=== PATIENT | female | born 1935 ===

== ENCOUNTER 2017-08-09 16:42 | Inpatient (IN) | payer MEDICARE ==
[~2017-08-09] VITALS: Ht 165.1 cm; Wt 52.2 kg
[2017-08-09 20:00] VITALS: BP 110/50
--- NOTE | 2017-08-09 20:00 | NUR ---
Admitted is a 81y/o F via [place] with [facility] from [facility] with a diagnosis of Right Humerus Fx (No Surgical Intervention needed) who tripped and fell down some stairs landing on her right shoulder and side at home. with Patient. Report received from Fernanda of [facility] regarding status of patient during transfer. Pt. with hx of GI bleeds, Malnutrition, Osteoporosis, Chronic Degenerative Disease, Liver Cirrhosis and Hypothyroid. Patient is alert and oriented x3. Verbally responsive and able to make needs known. Denies any pain and discomfort at this time. No acute distress. No SOB. On room air. Right arm sling and splint applied to right arm and hand and need to be kept on at al times per, nursing report. Bruising noted on Right arm, neck area, back, and right hand. Hematoma and bruising noted on right Forehead and Left hand. No s/s of bleeding at this time. Dr. Verdugo made aware of admission. Called [facility] exchange and spoke with Dr. America Harris who was made aware of New admission and med Reconciliation. Verbal order to continue all meds. New orders for Pain medication noted and carried out. All needs attended to promptly. Call light within reach. Will continue to monitor.
[2017-08-09] MEDS ORDERED: LEVO125T8 PO (20:12)
[2017-08-09] MEDS ORDERED: SPIR100T3 PO (20:12)
[2017-08-09] MEDS ORDERED: HYDR-552 PO (20:47)
[2017-08-09] MEDS ORDERED: PANT40TA2 PO (20:47)
[2017-08-09] MEDS: HYDROCODONE/APAP 5-325MG TABLET PO PRN (21:14)
[2017-08-10] MEDS ORDERED: HYDROCODONE/APAP 5-325MG TABLET PO PRN (06:45)
--- NOTE | 2017-08-10 06:45 | NUR ---
Patient awake and verbally responsive. Able to make needs known. Denies any pain and discomfort. No acute distress. No SOB. No c/o pain and discomfort at this time. Slept comfortably through out the night. Right sling and right splint on right arm and wrist. Kept clean and dry. All needs attended to promptly. Call light within reach. Will continue to monitor.
[2017-08-10] MEDS ORDERED: PANTOPRAZOLE SODIUM 40 MG TABLET.DR PO ONE (07:14)
[2017-08-10] MEDS ORDERED: PANTOPRAZOLE SODIUM 40 MG TABLET.DR PO SCH (07:30)
[2017-08-10] MEDS: SPIRONOLACTONE 100 MG TABLET PO SCH (09:48)
[2017-08-10] MEDS: LEVOTHYROXINE SODIUM 125 MCG TABLET PO SCH (09:48)
[2017-08-10] MEDS: HYDROCODONE/APAP 5-325MG TABLET PO PRN ×2 (09:58→15:13)
--- NOTE | 2017-08-10 11:59 | NUR ---
WOUND CARE CONSULT: PT SEEN FOR FOREHEAD HEMATOMA. SMALL RAISED AREA NOTED TO RT FOREHEAD WITH DRY ABRASION AND BRUISING. PRESENTS WITH IMMOBILIZER TO RT ARM. PT STATES HAS FRACTURE TO WRIST AREA. IMMOBILIZER NOT REMOVED AT THIS TIME. RECOMMEND SURGICAL CONSULT/FOLLOW UP. DRY SCAB NOTED TO LEFT THUMB. PT GETS UP TO BATHROOM WITH ASSISTANCE. WILL SEE PRN. PADILLA IN AGREEMENT WITH PLAN OF CARE. Addendum: 08/10/17 at 1205 by CHRISTO MUNOZ RN Amended: Links added.
[2017-08-10 12:00] VITALS: BP 127/75
--- NOTE | 2017-08-10 12:30 | NUR ---
DAILY NOTE WOUND NURSE IN TO SEE PT WROTE TX ORDERS FOR RIGHT HAND WOUND. OLD DRY DRSG REMOVED JEM WELL BY PT. PIC TAKEN. TOP RIGHT HAND AND ELBOW
--- NOTE | 2017-08-10 13:56 | NUR ---
WOUND CARE: RT ARM SKIN TEAR ASSESSED AND NOTED TO BE LARGE. RECOMMENDATIONS MADE FOR WOUND CARE. DISCUSSED WITH NURSING STAFF. WILL SEE PRN. PADILLA IN AGREEMENT WITH PLAN OF CARE. Addendum: 08/10/17 at 1357 by CHRISTO MUNOZ RN Amended: Links added.
[2017-08-10] MEDS ORDERED: Z GUARD REMEDY PASTE 57 GM TUBE TOP PRN (14:00)
--- NOTE | 2017-08-10 19:30 | NUR ---
Received pt in bed, awake alert and oriented. Up in bed watching TV. Denies any pain or discomfort at this time. Able to make needs known. Urinated x 1 in bedpan, clear and yellow with no abnormal odor noted. No acute distress noted. All safety measures and fall precautions maintained. Call light within reach. Will continue to monitor.
[2017-08-11] MEDS: LEVOTHYROXINE SODIUM 125 MCG TABLET PO SCH (06:20)
[2017-08-11] MEDS: PANTOPRAZOLE SODIUM 40 MG TABLET.DR PO SCH (06:20)
--- NOTE | 2017-08-11 06:48 | NUR ---
Pt slept well throughout the evening, waking up to request the bed main. Voided x 2. No BM. Alert and oriented, verbally responsive and able to make needs known. Denies pain or discomfort at this time. No acute distress noted. All safety measures and fall precautions maintained. Call light within reach. Bed locked, in lowest position and side rails up x 2.
[2017-08-11 08:03] LABS: ALANINE AMINOTRANSFERASE 18 U/L (14-59); ALKALINE PHOSPHATASE 51 U/L (50-136); ASPARTATE AMINOTRANSFERASE 19 U/L (15-37); BILIRUBIN,TOTAL 0.9 mg/dL (0.2-1.0); CARBON DIOXIDE 26 mmol/L (21-32); CHLORIDE 97 mmol/L (98-107); CREATININE 0.8 mg/dL (0.6-1.3); GLUCOSE 96 mg/dL (74-106); LIPASE 75 U/L (73-393); MAGNESIUM 1.4 mg/dL (1.8-2.4); PHOSPHOROUS 3.3 mg/dL (2.5-4.9); POTASSIUM 3.7 mmol/L (3.5-5.1); TOTAL PROTEIN, SERUM 6.5 g/dL (6.4-8.2); UREA NITROGEN, BLOOD 11 mg/dL (7-18)
[2017-08-11 08:05] LABS: BASOPHILS % (AUTO) 0.7 % (0.0-2.0); EOSINOPHILS # (AUTO) 0.1 K/uL (0.0-0.7); EOSINOPHILS % (AUTO) 2.3 % (0.0-7.0); HEMATOCRIT 30.4 % (37-47); HEMOGLOBIN 10.4 G/DL (12.0-16.0); LYMPHOCYTES # (AUTO) 0.7 K/UL (0.8-4.8); LYMPHOCYTES % (AUTO) 19.7 % (20.5-51.5); MEAN CORPUSCULAR HEMOGLOBIN 35.3 UUG (27.0-31.0); MEAN CORPUSCULAR HGB CONC 34 g/dL (32.0-37.0); MEAN CORPUSCULAR VOLUME 103.4 FL (81.0-99.0); MONOCYTES # (AUTO) 0.4 K/UL (0.1-1.30); MONOCYTES % (AUTO) 10.2 % (0.0-11.0); NEUTROPHILS # (AUTO) 2.4 K/UL (1.8-8.9); NEUTROPHILS % (AUTO) 67.1 % (38.5-71.5); PLATELET COUNT (AUTO) 118 K/UL (150-450); RED BLOOD CELL COUNT(AUTO) 2.94 MIL/UL (4.2-5.4); WHITE BLOOD COUNT (AUTO) 3.6 K/UL (4.0-11.2)
[2017-08-11] MEDS: SPIRONOLACTONE 100 MG TABLET PO SCH (08:41)
[2017-08-11] MEDS: HYDROCODONE/APAP 5-325MG TABLET PO PRN ×2 (10:11→18:30)
--- NOTE | 2017-08-11 11:11 | NUR ---
RECEIVED SBAR FROM CONSTRUCTION OR LEAK GANG LABORER NURSE, PATIENT NOTED SLEEPING IN BED, RIGHT ARM IN SLING, NO COMPLAINTS OF PAIN, NO SIGNS OF DISTRESS NOTED, CALL LIGHT IN REACH, BED LOCKED AND IN LOW POSITION
[2017-08-11] MEDS ORDERED: MAGNESIUM OXIDE 400 MG TABLET PO ONE (15:30)
--- NOTE | 2017-08-11 19:30 | NUR ---
PT ALERT AND ORIENTED IN BED. NO DISTRESS NOTED. PT PAIN "MUCH BETTER" SINCE TAKING THE [place]. FOREARM DRESSING CLEAN AND INTACT. SAFETY MAINTAINED. CALL LIGHT WITHIN REACH. WILL CONTINUE TO MONITOR.
[2017-08-11 20:00] VITALS: BP 138/67
[2017-08-12] MEDS: PANTOPRAZOLE SODIUM 40 MG TABLET.DR PO SCH (06:01)
[2017-08-12] MEDS: LEVOTHYROXINE SODIUM 125 MCG TABLET PO SCH (06:01)
--- NOTE | 2017-08-12 06:39 | NUR ---
PT ALERT AND ORIENTED IN BED. NO DISTRESS NOTED. ICE PACKS PROVIDED TO RIGHT UPPER ARM AND SHOULDER FOR COMFORT, ARM IMMOBILIZER IN PLACE. REFUSING PAIN MEDICATION AT THIS TIME. OFFERED PRUNE JUICE FOR CONSTIPATION, EXPLAINED SHE WILL TAKE IT WITH BREAKFAST, PASSING FLATULENCE. SAFETY MAINTAINED. CALL LIGHT WITHIN REACH.
--- NOTE | 2017-08-12 07:02 | NUR ---
Patient awake, lying on bed on a semi sarabia's position with no SOB, distress or any discomforts. All needs were attended and anticipated. call light placed within reach. Encouraged patient to use call light whenever assistance is needed. Will continue to monitor.
[2017-08-12 07:48] VITALS: BP 119/58
--- NOTE | 2017-08-12 08:15 | NUR ---
Patient awake, lying on bed on a semi- sarabia's position with pain 2 out of 10 on her right arm. cold compress applied on right arm. Will continue to monitor.
--- NOTE | 2017-08-12 09:20 | NUR ---
Wound care treatment done, no signs and symptoms of infection, tolerated well.
[2017-08-12] MEDS: SPIRONOLACTONE 100 MG TABLET PO SCH (09:40)
--- NOTE | 2017-08-12 11:13 | NUR ---
Patient awake, lying on bed on a semi sarabia's position with at bedside with no SOB, distress or any discomforts. All needs were attended and anticipated. Call light placed within reach. Encouraged patient to use call light whenever assistance is needed. Will continue to monitor.
--- NOTE | 2017-08-12 12:30 | NUR ---
Patient was awake, alert, lying on bed on a semi sarabia's position with no distress or discomforts. at bedside. Patient was seen and examined by Dr. Mikey Robison with new order of Naproxen 500 mg 1 tablet orally every 12 hours. Noted and carried out. patient notified and agreed.
--- NOTE | 2017-08-12 12:58 | NUR ---
Called Dr. Robison and notified that patient did not have any bowel movements but able to pass flatus and that the abdomen was assessed no bloating noted with normoactive bowel sounds, no abdominal pain or discomforts per patient. Received new orders from Dr. Robison to administer Dulcolax 10 mg 1 suppository rectally once today and Lactulose 20 grams orally every 6 hours as needed for constipation. Orders noted and carried out. Patient notified and agreed.
[2017-08-12] MEDS ORDERED: LACTULOSE 20 G/30 ML LIQUID UDC PO PRN (13:00)
[2017-08-12] MEDS ORDERED: BISACODYL 10 MG SUPP.RECT RC ONE (13:00)
[2017-08-12] MEDS: NAPROXEN 500 MG TABLET PO SCH ×2 (13:12→20:14)
--- NOTE | 2017-08-12 13:21 | NUR ---
Offered the patient her Dulcolax suppository 10 mg rectally once today as ordered by Dr. Robison but patient said she will have it a little later. Explained risks and benefits. But patient said a little later. Will continue to offer the suppository later. No SOB, no distress or discomforts noted at this time. Call light placed within reach. Will continue to monitor.
--- NOTE | 2017-08-12 14:08 | NUR ---
Administered the Dulcolax suppository 10 mg per rectum as ordered by Dr. Robison, patient tolerated well.
--- NOTE | 2017-08-12 19:09 | NUR ---
Patient awake, lying on bed resting with family at bedside with no distress, or discomforts. All needs were attended and anticipated. call light within reach. Endorsed to incoming shift.
--- NOTE | 2017-08-12 20:00 | NUR ---
PT ALERT AND ORIENTED IN BED. NO DISTRESS NOTED. ARM IMMOBILIZER IN PLACE. COOLING MEASURES APPLIED FOR COMFORT. CLEAN AND DRY. TURNED AND REPOSITIONED. SAFETY MAINTAINED. CALL LIGHT WITHIN REACH.
[2017-08-12 20:02] VITALS: BP 137/71
[2017-08-13] MEDS: LEVOTHYROXINE SODIUM 125 MCG TABLET PO SCH (06:02)
[2017-08-13] MEDS: PANTOPRAZOLE SODIUM 40 MG TABLET.DR PO SCH (06:02)
--- NOTE | 2017-08-13 06:22 | NUR ---
PT RESTING IN BED. NO DISTRESS NOTED. ARM IMMOBILIZER IN PLACE WITH COOLING PACKS APPLIED. ARM OFFLOADING ON PILLOW. USED BEDPAN THROUGHOUT THE NIGHT. CLEAN AND DRY. TURNED AND REPOSITIONED. SAFETY MAINTAINED. CALL LIGHT WITHIN REACH.
[2017-08-13 07:12] VITALS: BP 116/54
[2017-08-13 07:15] VITALS: BP 147/61
--- NOTE | 2017-08-13 08:16 | NUR ---
Received patient in bed awake, alert, verbally responsive, not in any form of acute distress. She denies any pain at this time. Arm immobilizer in place with ice pack. Call light placed within reach. Reminded to use call light for assistance with verbalized understanding.
[2017-08-13] MEDS: SPIRONOLACTONE 100 MG TABLET PO SCH (09:10)
[2017-08-13] MEDS: NAPROXEN 500 MG TABLET PO SCH ×2 (09:10→20:40)
[2017-08-13] MEDS: HYDROCODONE/APAP 5-325MG TABLET PO PRN ×2 (09:35→16:31)
--- NOTE | 2017-08-13 10:15 | NUR ---
Patient out of bed, ambulatory with occupational therapist.
--- NOTE | 2017-08-13 13:15 | NUR ---
Collection Development Librarian: SW met with pt and at bedside to assess for needs and provide support. Pt is an 81-year-old female admitted to ARU for a right humerus surgical neck fracture. While in ARU pt will comply to rehab goals in order to strengthen functional decline and impaired ADL. Pt presented in a calm and cooperative mood during interview. When asked about her ARU admission pt stated "I fell down some concrete stairs at home." Pt reported she has had a hx of falls in the past, however has been independent/ambulatory. Per pt, she lives at home with her . Both reported to perform ADLs well and without any assistance, and stated they exercise and walk a lot. Both pt and also reported they stay active by going to [employer]. Both denied to have any children. When asked what is her goal, pt stated "certainly want my mobility back." Per pt, she does not use a DME at home. Pt and reported that if needed HH for some additional physical therapy at home would be appreciated. SW engaged in active listening. SW provided emotional and supportive counseling. SW will continue to address issues of loss related to decline in ambulation. SW will provide linkage to community resources. SW will continue to be available as needed.
--- NOTE | 2017-08-13 19:30 | NUR ---
Received patient in bed. Alert and verbally responsive. Able to make needs known. Denies any pain and discomfort at this time. No acute distress. No SOB. Sling and splint applied to right arm as ordered. Ice packs in place. Kept clean and dry. All needs attended to promptly. Call light within reach. Will continue to monitor.
[2017-08-13 20:00] VITALS: BP 140/60
--- NOTE | 2017-08-14 06:03 | NUR ---
Patient awake at this time. Slept comfortably throughout the night. No c/o pain and discomfort. No acute distress. Assisted with using bedpan. Good pericare provided. All needs attended to promptly. Call light within reach. Will continue to monitor.
[2017-08-14] MEDS: PANTOPRAZOLE SODIUM 40 MG TABLET.DR PO SCH (06:15)
[2017-08-14] MEDS: LEVOTHYROXINE SODIUM 125 MCG TABLET PO SCH (06:15)
--- NOTE | 2017-08-14 07:40 | NUR ---
Received patient, awake alert and oriented x4. With pain over shoulder rated as 5/10. Reinforced ice packs over shoulder. Not in apparent distress. Call light and belongings within reach.
[2017-08-14] MEDS: NAPROXEN 500 MG TABLET PO SCH ×2 (09:01→20:33)
[2017-08-14] MEDS: SPIRONOLACTONE 100 MG TABLET PO SCH (09:01)
[2017-08-14] MEDS: HYDROCODONE/APAP 5-325MG TABLET PO PRN ×3 (09:39→21:44)
--- NOTE | 2017-08-14 10:36 | NUR ---
Shoulder pain rated as 7/10. PRN [place] given. Up with occupational therapy.
--- NOTE | 2017-08-14 15:14 | NUR ---
PAin over shoulder and hand rates as 7/10. PRN [place] given
--- NOTE | 2017-08-14 19:30 | NUR ---
Received patient in bed. Alert and verbally responsive. Able to make needs known. Denies any pain and discomfort at this time. No acute distress. No SOB. Right sling and splint applied to right arm at all times. Dressing on right arm intact. Kept clean and dry. Bruising still noted around fracture site and right forehead, but slowly improving. Assisted with bed main. Pericare provided. All needs attended to promptly. Call light within reach. Will continue to monitor.
[2017-08-14 20:00] VITALS: BP 97/78
[2017-08-15] MEDS: PANTOPRAZOLE SODIUM 40 MG TABLET.DR PO SCH (06:34)
[2017-08-15] MEDS: LEVOTHYROXINE SODIUM 125 MCG TABLET PO SCH (06:34)
--- NOTE | 2017-08-15 06:43 | NUR ---
Patient slept comfortably throughout the night. No c/o pain and discomfort. No s/s of acute distress. No SOB. 7am medications given. Assisted with bedpan. Pericare provided. Kept clean and dry. All needs attended to promptly. Call light within reach. Will continue to monitor.
[2017-08-15 07:10] VITALS: BP 118/52
--- NOTE | 2017-08-15 07:55 | NUR ---
Received patient, awake, alert x4. With Ice packs over area. With tolerable pain. Not in apparent distress. Call light and belongings within reach.
[2017-08-15] MEDS: NAPROXEN 500 MG TABLET PO SCH ×2 (09:17→20:26)
[2017-08-15] MEDS: SPIRONOLACTONE 100 MG TABLET PO SCH (09:17)
--- NOTE | 2017-08-15 10:00 | NUR ---
Pain over shoulder rated as 7/10. PRN [place] given.
[2017-08-15] MEDS: HYDROCODONE/APAP 5-325MG TABLET PO PRN (10:05)
--- NOTE | 2017-08-15 13:00 | NUR ---
Tolerated occupational and physical therapy well. Applied ice packs over area.
--- NOTE | 2017-08-15 13:34 | NUR ---
Interdisciplinary Meeting Summary
--- NOTE | 2017-08-15 15:42 | NUR ---
Informed patient of follow up check-up with Dr. Rod on August at 10:00 Am. Transportation to be arranged by caseworker intake.
--- NOTE | 2017-08-15 18:00 | NUR ---
Patient refused dressing changed an said she wants it tomorrow morning
--- NOTE | 2017-08-15 19:30 | NUR ---
Received patient laying in bed. Alert and verbally responsive. Able to make needs known. Denies any pain and discomfort at this time. No acute distress. No SOB. Kept clean and dry. Right sling and splint in place. All needs attended to promptly. Call light within reach. Will continue to monitor.
[2017-08-15 20:00] VITALS: BP 94/50
[2017-08-15] MEDS: LATANOPROST OPHT DROP 2.5 ML BOTTLE EACHEYE SCH (21:34)
[2017-08-16] MEDS: PANTOPRAZOLE SODIUM 40 MG TABLET.DR PO SCH (06:23)
[2017-08-16] MEDS: LEVOTHYROXINE SODIUM 125 MCG TABLET PO SCH (06:23)
--- NOTE | 2017-08-16 06:30 | NUR ---
Patient slept comfortably throughout the night. No acute distress noted. No c/o pain and discomfort. Kept clean and dry. 7am medication given. All needs attended to promptly. Call light within reach. Will continue to monitor.
--- NOTE | 2017-08-16 07:15 | NUR ---
Received patient awake, lying on bed on a semi- sarabia's position with no SOB, distress or any discomforts at this time. All needs were attended and anticipated. call light placed within reach. Encouraged patient to use call light whenever assistance is needed.
[2017-08-16 09:02] VITALS: BP 131/65
[2017-08-16] MEDS: SPIRONOLACTONE 100 MG TABLET PO SCH (09:07)
[2017-08-16] MEDS: NAPROXEN 500 MG TABLET PO SCH ×2 (09:07→20:58)
[2017-08-16] MEDS: BRIMONIDINE 0.2% OPHT DROP 10 ML BOTTLE EACHEYE SCH ×2 (09:07→17:23)
--- NOTE | 2017-08-16 09:45 | NUR ---
Daily wound care done. No signs and symptoms of infection on the site noted. Patient tolerated well the wound care dressing.
--- NOTE | 2017-08-16 11:34 | NUR ---
Patient awake, alert and oriented, up on bed with physical therapy at the rehab room without difficulty. Will continue to monitor closely.
--- NOTE | 2017-08-16 14:00 | NUR ---
Patient ambulated with PT without difficulty. Will continue to monitor.
--- NOTE | 2017-08-16 15:00 | NUR ---
Patient came back from physical therapy with no display of distress or discomforts. All needs attended and anticipated. call light placed within reach. Will continue to monitor.
[2017-08-16] MEDS: HYDROCODONE/APAP 5-325MG TABLET PO PRN (16:39)
--- NOTE | 2017-08-16 17:47 | NUR ---
Patient noted awake, resting on bed on a semi- sarabia's position with no signs and symptoms of distress or discomforts. All needs were attended and anticipated with at bedside. call light placed within reach. Encouraged patient to use call light whenever assistance is needed. Will continue to monitor.
--- NOTE | 2017-08-16 19:25 | NUR ---
Received pt in bed, awake and watching TV. at bedside. No acute distress noted. Denies pain or discomfort at this time. HOB elevated. Alert and oriented, verbally responsive and able to make needs known. All safety measures and fall precautions maintained. Call light within reach. Will continue to monitor.
[2017-08-16 20:52] VITALS: BP 86/39
[2017-08-16] MEDS: LATANOPROST OPHT DROP 2.5 ML BOTTLE EACHEYE SCH (20:58)
[2017-08-17] MEDS: PANTOPRAZOLE SODIUM 40 MG TABLET.DR PO SCH (06:12)
[2017-08-17] MEDS: LEVOTHYROXINE SODIUM 125 MCG TABLET PO SCH (06:12)
--- NOTE | 2017-08-17 06:51 | NUR ---
Pt slept most of the evening. No acute distress noted. Denies pain or discomfort at this time. Tolerated all medications well. All needs met and attended to promptly. All safety measures and fall precautions maintained. Call light within reach. Will continue to monitor.
--- NOTE | 2017-08-17 07:20 | NUR ---
Received patient awake, lying on bed with no distress, no discomforts noted at this time. Call light placed within reach. All needs were attended and anticipated. Encouraged patient to use call light whenever assistance is needed. Will continue to monitor.
[2017-08-17 07:41] LABS: BASOPHILS % (AUTO) 0.9 % (0.0-2.0); EOSINOPHILS # (AUTO) 0.1 K/uL (0.0-0.7); EOSINOPHILS % (AUTO) 2.5 % (0.0-7.0); HEMATOCRIT 30.4 % (31.2-41.9); HEMOGLOBIN 10.6 g/dL (10.9-14.3); LYMPHOCYTES # (AUTO) 0.7 K/uL (20.0-40.0); LYMPHOCYTES % (AUTO) 22.5 % (20.5-51.5); MEAN CORPUSCULAR HEMOGLOBIN 36.3 uug (24.7-32.8); MEAN CORPUSCULAR HGB CONC 35 g/dL (32.3-35.6); MONOCYTES # (AUTO) 0.2 K/uL (2.0-10.0); MONOCYTES % (AUTO) 6.8 % (0.0-11.0); NEUTROPHILS # (AUTO) 2.1 K/uL (1.8-8.9); NEUTROPHILS % (AUTO) 67.3 % (38.5-71.5); PLATELET COUNT (AUTO) 136 K/uL (179-408); RED BLOOD CELL COUNT(AUTO) 2.92 MIL/uL (3.63-4.92); WHITE BLOOD COUNT (AUTO) 3.1 K/uL (3.8-11.8)
[2017-08-17 08:19] LABS: ALANINE AMINOTRANSFERASE 19 U/L (14-59); ALKALINE PHOSPHATASE 91 U/L (50-136); ASPARTATE AMINOTRANSFERASE 21 U/L (15-37); BILIRUBIN,TOTAL 0.8 mg/dL (0.2-1.0); CARBON DIOXIDE 29 mmol/L (21-32); CHLORIDE 102 mmol/L (98-107); CHOLESTEROL 179 mg/dL (<200); CREATININE 1.2 mg/dL (0.6-1.3); GLUCOSE 88 mg/dL (74-106); HDL CHOLESTEROL 62 mg/dL (40-60); MAGNESIUM 1.9 mg/dL (1.8-2.4); PHOSPHOROUS 3.6 mg/dL (2.5-4.9); POTASSIUM 4.4 mmol/L (3.5-5.1); TOTAL PROTEIN, SERUM 6.8 g/dL (6.4-8.2); TRIGLYCERIDES 112 MG/DL (30-150); UREA NITROGEN, BLOOD 24 mg/dL (7-18)
[2017-08-17 08:25] VITALS: BP 86/44
[2017-08-17] MEDS: NAPROXEN 500 MG TABLET PO SCH ×2 (08:33→20:59)
[2017-08-17] MEDS: SPIRONOLACTONE 100 MG TABLET PO SCH (08:33)
[2017-08-17] MEDS: BRIMONIDINE 0.2% OPHT DROP 10 ML BOTTLE EACHEYE SCH ×2 (08:34→17:24)
[2017-08-17] MEDS: HYDROCODONE/APAP 5-325MG TABLET PO PRN (09:42)
--- NOTE | 2017-08-17 10:00 | NUR ---
Daily wound care treatment done. Applied NS, pat dry, applied Xeroform, abdominal pad and wrapped with Kerlix as ordered. No signs and symptoms of infections were noted. No swelling or any redness noted. Patient tolerated well the dressing change. Will continue to monitor.
--- NOTE | 2017-08-17 15:00 | NUR ---
Patient ambulated with Physical therapy without difficulty. All needs attended and anticipated. Call light placed within reach. Will continue to monitor.
[2017-08-17 19:30] VITALS: BP 95/41
--- NOTE | 2017-08-17 19:45 | NUR ---
Received pt in bed, awake alert and oriented watching TV. Dr. Mitchell and Dr. Verdugo in to see pt, no new orders. Pt verbally responsive and able to make needs known. Denies pain or discomfort at this time. No acute distress noted. at bedside. All safety measures and fall precautions maintained. Call light within reach. Will continue to monitor.
[2017-08-17] MEDS: LATANOPROST OPHT DROP 2.5 ML BOTTLE EACHEYE SCH (20:59)
[2017-08-18] MEDS: LEVOTHYROXINE SODIUM 125 MCG TABLET PO SCH (07:06)
[2017-08-18] MEDS: PANTOPRAZOLE SODIUM 40 MG TABLET.DR PO SCH (07:06)
--- NOTE | 2017-08-18 07:15 | NUR ---
Pt slept throughout the evening. Assisted with bedpan x 2. No acute distress noted. Denies pain or discomfort at this time. All needs met and attended to promptly. Tolerated all meds well. All safety measures and fall precautions maintained.
--- NOTE | 2017-08-18 07:45 | NUR ---
Received patient awake in bed, watching tv, verbally responsive, not in any form of acute distress. She denies any pain or discomfort at this time. Call light placed within reach. Assisted to her needs.
[2017-08-18 08:12] VITALS: BP 140/59
[2017-08-18] MEDS: SPIRONOLACTONE 100 MG TABLET PO SCH (08:58)
[2017-08-18] MEDS: NAPROXEN 500 MG TABLET PO SCH ×2 (08:58→20:30)
[2017-08-18] MEDS: BRIMONIDINE 0.2% OPHT DROP 10 ML BOTTLE EACHEYE SCH ×2 (08:58→17:03)
--- NOTE | 2017-08-18 19:30 | NUR ---
RECEIVED PATIENT FROM DAY SHIFT NURSE. SHIFT REPORT AT BEDSIDE. NO SIGNS OF PAIN OR ACUTE DISTRESS. PATIENT A/O X4. PATIENT LYING COMFORTABLY IN BED WITH ARM/SHOULDER SLING. PERTINENT ASSESSMENTS DONE. CALL LIGHT PLACED WITHIN REACH OF PATIENT. WILL CONTINUE TO MONITOR PATIENT THROUGH OUT SHIFT.
[2017-08-18 20:16] VITALS: BP 98/48
[2017-08-18] MEDS: LATANOPROST OPHT DROP 2.5 ML BOTTLE EACHEYE SCH (20:30)
[2017-08-19] MEDS: PANTOPRAZOLE SODIUM 40 MG TABLET.DR PO SCH (06:19)
[2017-08-19] MEDS: LEVOTHYROXINE SODIUM 125 MCG TABLET PO SCH (06:19)
--- NOTE | 2017-08-19 06:39 | NUR ---
PATIENT SLEPT COMFORTABLY AND WELL THROUGH SHIFT. NO SIGNS OF PAIN OR ACUTE DISTRESS. ABLE TO MAKE NEEDS KNOWN. ALL MEDICATIONS ADMINISTERED ORDERED. VITAL SIGNS STABLE. CALL LIGHT WITHIN REACH OF PATIENT. WILL REPORT TO DAY SHIFT NURSE.
[2017-08-19 07:14] VITALS: BP 149/56
--- NOTE | 2017-08-19 08:11 | NUR ---
RECEIVED REPORT FROM WEB APPLICATION DEV SPECIALIST. PT STABLE, AWAKE EATING BREAKFAST. NO S/S DISTRESS. VS WNL. CALL LIGHT WITHIN PTS REACH. WILL CONTINUE TO MONITOR
[2017-08-19] MEDS: SPIRONOLACTONE 100 MG TABLET PO SCH (08:41)
[2017-08-19] MEDS: BRIMONIDINE 0.2% OPHT DROP 10 ML BOTTLE EACHEYE SCH ×2 (08:41→17:45)
[2017-08-19] MEDS: NAPROXEN 500 MG TABLET PO SCH ×2 (08:41→20:47)
[2017-08-19 20:06] VITALS: BP 94/51
[2017-08-19] MEDS: LATANOPROST OPHT DROP 2.5 ML BOTTLE EACHEYE SCH (20:47)
--- NOTE | 2017-08-20 05:33 | NUR ---
aaox4. patient admitted for right humerus fracture secondary to the fall. needs attended. vital signs stable. right arm sling intact, was on bilateral SCD's on. right arm dressing changed 08/19/17. voiding well. kept comfortable. patient has appointment today with Dr Da Silva (orthopedic) thru [facility] on a wheelchair van. pickup time is 0915am.denies any pain nor any discomfort. will monitor patient.
[2017-08-20] MEDS: PANTOPRAZOLE SODIUM 40 MG TABLET.DR PO SCH (06:18)
[2017-08-20] MEDS: LEVOTHYROXINE SODIUM 125 MCG TABLET PO SCH (06:19)
[2017-08-20 07:10] VITALS: BP 144/54
--- NOTE | 2017-08-20 07:15 | NUR ---
Received patient awake, alert and oriented lying on bed on a high sarabia's position. patient stated " I am going to my doctor today". No SOB, distress or any discomforts noted. All needs were attended and anticipated. Call light within reach. Encouraged patient to use call light whenever assistance is needed. Will continue to monitor.
[2017-08-20] MEDS: BRIMONIDINE 0.2% OPHT DROP 10 ML BOTTLE EACHEYE SCH ×2 (09:00→17:27)
[2017-08-20] MEDS: SPIRONOLACTONE 100 MG TABLET PO SCH (09:00)
[2017-08-20] MEDS: NAPROXEN 500 MG TABLET PO SCH ×2 (09:00→20:44)
--- NOTE | 2017-08-20 09:24 | NUR ---
Patient was picked- up by [facility] transportation going to her scheduled appointment with Dr. Rod (Orthopedic Surgeon) at 10am at [address] [facility] [facility], [address] with the reports and CD of her right shoulder and right humerus x-ray, history and physical and medication list as requested by MD's office. patient is being accompanied by her . Patient left for the appointment with no SOB, distress or any discomforts on a wheelchair.
--- NOTE | 2017-08-20 11:14 | NUR ---
Patient came back from her scheduled appointment with Dr. Rod, accompanied by her , came back in stable condition, no SOB, distress or any discomforts. Per patient's patient will have a follow- up appointment with Dr. Rod on September 04, 2017 at 3pm. No progress notes from Dr. Rod's office. Called MD's office several times to obtain the progress notes and if there are other orders from today's appointment 08/20/2017 but no answer from the office. Patient and made aware.
--- NOTE | 2017-08-20 15:21 | NUR ---
Patient noted awake, alert and oriented, noted patient ambulating with physical therapy on the hallway with no discomforts or any difficulty at this time. Will continue to monitor.
--- NOTE | 2017-08-20 16:00 | NUR ---
Daily wound treatment done. Cleanse wound with NS, pat dry, apply Xeroform, cover with abdominal pad wrap with Kerlix secure with tape. no signs and symptoms of infections noted on the site, healing well. Patient tolerated well the procedure.
--- NOTE | 2017-08-20 18:51 | NUR ---
Patient asleep, lying on bed with seated at the bedside. No SOB, distress or discomforts noted. No moaning or facial grimace noted. Easily aroused with call light within reach. Will continue to monitor.
--- NOTE | 2017-08-20 19:35 | NUR ---
Received pt in bed, awake alert and oriented, watching TV. Verbally responsive and able to make needs known. Denies any pain or discomfort at this time. No acute distress noted. All safety measures and fall precautions maintained. Call light within reach. Will continue to monitor.
[2017-08-20 20:28] VITALS: BP 98/53
[2017-08-20] MEDS: LATANOPROST OPHT DROP 2.5 ML BOTTLE EACHEYE SCH (20:44)
--- NOTE | 2017-08-21 06:18 | NUR ---
Pt slept well throughout shift. No distress noted. Denies pain or discomfort at this time. Assisted to bathroom x 1. All needs anticipated and met promptly. Tolerated all medications well. All safety measures and fall precautions maintained. Call light within reach. Will continue to monitor.
[2017-08-21] MEDS: PANTOPRAZOLE SODIUM 40 MG TABLET.DR PO SCH (06:42)
[2017-08-21] MEDS: LEVOTHYROXINE SODIUM 125 MCG TABLET PO SCH (06:42)
[2017-08-21 06:53] LABS: BASOPHILS % (AUTO) 1.2 % (0.0-2.0); EOSINOPHILS # (AUTO) 0.1 K/uL (0.0-0.7); EOSINOPHILS % (AUTO) 2.8 % (0.0-7.0); HEMATOCRIT 31.9 % (31.2-41.9); LYMPHOCYTES % (AUTO) 31.3 % (20.5-51.5); MEAN CORPUSCULAR HEMOGLOBIN 36.1 uug (24.7-32.8); MEAN CORPUSCULAR HGB CONC 35 g/dL (32.3-35.6); MEAN CORPUSCULAR VOLUME 104.3 fL (75.5-95.3); MONOCYTES # (AUTO) 0.2 K/uL (2.0-10.0); MONOCYTES % (AUTO) 7.7 % (0.0-11.0); NEUTROPHILS # (AUTO) 1.8 K/uL (1.8-8.9); PLATELET COUNT (AUTO) 129 K/uL (179-408); RED BLOOD CELL COUNT(AUTO) 3.05 MIL/uL (3.63-4.92); WHITE BLOOD COUNT (AUTO) 3.2 K/uL (3.8-11.8)
[2017-08-21 07:18] LABS: ALANINE AMINOTRANSFERASE 15 U/L (14-59); ALKALINE PHOSPHATASE 138 U/L (50-136); ASPARTATE AMINOTRANSFERASE 23 U/L (15-37); BILIRUBIN,TOTAL 0.9 mg/dL (0.2-1.0); CARBON DIOXIDE 25 mmol/L (21-32); CHLORIDE 106 mmol/L (98-107); CREATININE 1.3 mg/dL (0.6-1.3); GLUCOSE 93 mg/dL (74-106); MAGNESIUM 1.9 mg/dL (1.8-2.4); PHOSPHOROUS 3.9 mg/dL (2.5-4.9); POTASSIUM 4.2 mmol/L (3.5-5.1); TOTAL PROTEIN, SERUM 6.9 g/dL (6.4-8.2); UREA NITROGEN, BLOOD 21 mg/dL (7-18)
[2017-08-21 08:18] VITALS: BP 135/61
[2017-08-21] MEDS: NAPROXEN 500 MG TABLET PO SCH (09:14)
[2017-08-21] MEDS: BRIMONIDINE 0.2% OPHT DROP 10 ML BOTTLE EACHEYE SCH (09:15)
[2017-08-21] MEDS: SPIRONOLACTONE 100 MG TABLET PO SCH (09:15)
--- NOTE | 2017-08-21 15:16 | NUR ---
D/C NOTE DISCHARGED ALL INSTRUCTIONS GIVEN, PRESCRIPTIONS GIVEN, EDUCATION MATERIALS, BELONGINGS LIST SIGNED, WOUND PICS TAKEN D/C ORDER DONE. WALKED PT AND HER TO CAR ATH THEIR REQUEST. DECLINED W/C. IN NO ACUTE DISTRESS. INFOR GIVEN TO THEM RE:HOME HEALTH. ASSISTED HOME HEALTH. AND THE MAINTENANCE CUSTODIAN. PHONE NUMBER AND INSTRUCTIONS.
[2017-08-21 15:43] VITALS: BP 133/78
== END 2017-08-21 15:20 | disposition home health service (06) | DRG 559 ==
PROVIDERS: ADMIT Physical Medicine & Rehabilitation Pain Medicine; ATTEND Physical Medicine & Rehabilitation Pain Medicine
DX: M80.8 Other osteoporosis with current pathological fracture (principal); E43 Unspecified severe protein-calorie malnutrition; N17.0 Acute kidney failure with tubular necrosis; D61.818 Other pancytopenia; D75.89 Other specified diseases of blood and blood-forming organs; K70.30 Alcoholic cirrhosis of liver without ascites; D63.8 Anemia in other chronic diseases classified elsewhere; E46 Unspecified protein-calorie malnutrition; F10.288 Alcohol dependence with other alcohol-induced disorder; M80.84 Other osteoporosis with current pathological fracture, hand; E03.9 Hypothyroidism, unspecified; M81.0 Age-related osteoporosis without current pathological fracture; I10 Essential (primary) hypertension; E78.5 Hyperlipidemia, unspecified; F41.9 Anxiety disorder, unspecified; H40.9 Unspecified glaucoma; K21.9 Gastro-esophageal reflux disease without esophagitis; Z91.81 History of falling; Z88.0 Allergy status to penicillin; M47.892 Other spondylosis, cervical region
CPT/HCPCS: 36415; 73030; 73060; 82306; 83690; 83735; 84100; 84443; 85025; 92526; 92610; 97110; 97112; 97116; 97165; 97530; 97535; A4663

== ENCOUNTER 2018-02-15 11:25 | Inpatient (IN) | payer MEDICARE, BC ==
[~2018-02-15] VITALS: Ht 165.1 cm; Wt 51.7 kg
[~2018-02-15 11:25] MED LIST: HYDR-552 PO; LEVO125T8 PO; PANT40TA2 PO; SPIR100T3 PO
[2018-02-15 13:30] VITALS: BP 88/42
--- NOTE | 2018-02-15 15:00 | NUR ---
NURSE NOTES: PATIENT WAS ADMITT[facility] FROM [facility] ACCOMPAN[facility] BY 2 EMT STAFF ON A GURNEY VIA AMBULANCE. PATIENT WAS ADMITTED WITH DIAGNOSIS OF DEBILITY, LIVER CIRRHOSIS, HTN, GERD, GI BLEED, ANXIETY HAD PARACENTESIS 02/13/2018. PATIENT WAS NOTED TO HAVE BP: 88/42 [place]: 72, TEMP: 98.1 AND 98% ON ROOM AIR WITH NO SOB OR DISTRESS. DENIES ANY PAIN OR DIZZINESS. DR. WADSWORTH WAS INFORMED OF THE BLOOD PRESSURE. WILL CONTINUE TO MONITOR. MEDICATION RECONCILIATION WAS DONE AWAITING FOR MD TO REVIEW. WILL CONTINUE TO MONITOR.
[2018-02-15] MEDS ORDERED: PROP20TA7 PO (16:11)
[2018-02-15] MEDS ORDERED: FURO40TA5 PO (16:11)
[2018-02-15] MEDS ORDERED: FOLI1TAB16 PO (16:11)
[2018-02-15] MEDS ORDERED: THIA100T13 PO (16:11)
--- NOTE | 2018-02-15 18:40 | NUR ---
END OF SHIFT NOTES: PATIENT ALERT AND ORIENTED X 4 ABLE TO MAKE NEEDS KNOWN WITH AT THE BEDSIDE. NO SOB OR DISTRESS, DENIES ANY PAIN OR DIZZINESS. RECHECKED PATIENT'S VITAL SIGNS WITH BP: 92/43, LA; 78, TEMP: 97.8, OXYGEN SAT: 98% ON ROOM AIR. HOURLY ROUNDING DONE. CALL LIGHT WITHIN REACH AT ALL TIMES. WILL ENDORSE TO INCOMING SHIFT.
--- NOTE | 2018-02-15 19:30 | NUR ---
received pt lying comfortably in bed alert and awake. Able to make needs known. In no acute distress. Denies pain at this time. no SOB noted. Safety and fall precautions observed and maintained. encouraged to verbalize needs and concerns and call for assistance if needed. Call light placed within reach. All needs attended.
[2018-02-15] MEDS ORDERED: HYDROCODONE/APAP 5-325MG TABLET PO PRN (20:00)
[2018-02-15 20:21] VITALS: BP 88/43
[2018-02-15 21:00] VITALS: BP 99/46
--- NOTE | 2018-02-16 05:50 | NUR ---
Pt slept comfortably throughout the shift with no signs/symptoms of distress noted. No complaints of pain or discomfort. Assisted to the bathroom as needed. Kept clean, dry and comfortable. Call light within reach. All needs attended.
[2018-02-16] MEDS: LEVOTHYROXINE SODIUM 125 MCG TABLET PO SCH (06:43)
[2018-02-16] MEDS: PANTOPRAZOLE SODIUM 40 MG TABLET.DR PO SCH ×3 (06:43→17:25)
--- NOTE | 2018-02-16 07:10 | NUR ---
RECEIVED REPORT FROM CORPORATE REAL ESTATE MANAGER NURSE, PATIENT IN BED AWAKE, NO DISTRESS NOTED, BED IN LOW POSITION, SIDE RAILS UP X2.
[2018-02-16 07:33] LABS: BASOPHILS % (AUTO) 0.9 % (0.0-2.0); EOSINOPHILS # (AUTO) 0.1 K/uL (0.0-0.7); EOSINOPHILS % (AUTO) 1.7 % (0.0-7.0); HEMATOCRIT 23.9 % (31.2-41.9); HEMOGLOBIN 8.3 g/dL (10.9-14.3); LYMPHOCYTES # (AUTO) 0.8 K/uL (20.0-40.0); MEAN CORPUSCULAR HEMOGLOBIN 37.6 uug (24.7-32.8); MEAN CORPUSCULAR HGB CONC 35 g/dL (32.3-35.6); MEAN CORPUSCULAR VOLUME 108.8 fL (75.5-95.3); MONOCYTES # (AUTO) 0.3 K/uL (2.0-10.0); MONOCYTES % (AUTO) 10.1 % (0.0-11.0); NEUTROPHILS # (AUTO) 1.9 K/uL (1.8-8.9); NEUTROPHILS % (AUTO) 61.3 % (38.5-71.5); PLATELET COUNT (AUTO) 109 K/uL (179-408); WHITE BLOOD COUNT (AUTO) 3.1 K/uL (3.8-11.8)
[2018-02-16 07:49] LABS: THYROID STIMULATING HORMONE 6.193 mIU/mL (0.358-3.740)
[2018-02-16 08:12] LABS: ALANINE AMINOTRANSFERASE 13 U/L (14-59); ALKALINE PHOSPHATASE 62 U/L (50-136); ASPARTATE AMINOTRANSFERASE 18 U/L (15-37); BILIRUBIN,TOTAL 0.9 mg/dL (0.2-1.0); CARBON DIOXIDE 26 mmol/L (21-32); CHLORIDE 96 mmol/L (98-107); CHOLESTEROL 136 mg/dL (<200); GLUCOSE 86 mg/dL (74-106); HDL CHOLESTEROL 77 mg/dL (40-60); MAGNESIUM 1.7 mg/dL (1.8-2.4); PHOSPHOROUS 3.7 mg/dL (2.5-4.9); POTASSIUM 3.6 mmol/L (3.5-5.1); TOTAL PROTEIN, SERUM 5.5 g/dL (6.4-8.2); TRIGLYCERIDES 35 MG/DL (30-150); UREA NITROGEN, BLOOD 18 mg/dL (7-18)
[2018-02-16 08:27] VITALS: BP 100/42
[2018-02-16] MEDS: THIAMINE HCL 100 MG TABLET PO SCH (09:15)
[2018-02-16] MEDS: FUROSEMIDE 40 MG TABLET PO SCH (09:15)
[2018-02-16] MEDS: FOLIC ACID 1 MG TABLET PO SCH (09:15)
[2018-02-16] MEDS ORDERED: MAGNESIUM OXIDE 400 MG TABLET PO ONE (16:00)
--- NOTE | 2018-02-16 18:47 | NUR ---
PATIENT HAS BEEN COOPERATIVE WITH CARE, ABLE TO SWALLOW PILLS WHOLE, CALLS WHEN ASSISTANCE IS NEEDED, AND ABLE TO COMMUNICATE NEEDS WITH STAFF. CURRENTLY PATIENT IN BED AWAKE, NO DISTRESS NOTED, BED IN LOW POSITION, SIDE RAILS UP X2.
[2018-02-16 19:30] VITALS: BP 103/46
--- NOTE | 2018-02-16 19:44 | NUR ---
Received pt lying comfortably in bed alert, awake and oriented x3 with no signs/symptoms of distress noted. No complaints of pain or discomfort. No SOB noted. Side rails up x2. Bed locked and in lowest position. kept clean, dry and comfortable. Call light placed within reach. All needs attended.
--- NOTE | 2018-02-17 01:28 | NUR ---
Pt complained of non productive cough, but no SOB noted. Vital signs BP 123/58, HR 72, RR 18, O2 sat 98% RA. call centre supervisor HELPER METAL HANGING (Chapincito Ferguson) made aware and ordered robitussin 5ml q6hr PRN. Will continue to monitor pt.
[2018-02-17] MEDS ORDERED: GUAIFENESIN/DEXTROMETHORPHAN 5 ML UDC PO PRN (01:30)
[2018-02-17] MEDS: PANTOPRAZOLE SODIUM 40 MG TABLET.DR PO SCH ×3 (06:23→16:20)
[2018-02-17] MEDS: LEVOTHYROXINE SODIUM 125 MCG TABLET PO SCH (06:23)
--- NOTE | 2018-02-17 07:15 | NUR ---
Handoff rounds from night nurse. Patient had slight cough relieved by Robitussin last night after difficulty with hamburger. Baseline blood pressure decrease from 100 to 80's systolic. Will monitor today. Patient talking on the phone now.
[2018-02-17 08:29] VITALS: BP 97/50
[2018-02-17] MEDS: FOLIC ACID 1 MG TABLET PO SCH (09:47)
[2018-02-17] MEDS: FUROSEMIDE 40 MG TABLET PO SCH (09:47)
[2018-02-17] MEDS: THIAMINE HCL 100 MG TABLET PO SCH (09:47)
[2018-02-17 10:48] VITALS: BP 108/58
--- NOTE | 2018-02-17 19:29 | NUR ---
Handoff to night nurse.
[2018-02-17 19:30] VITALS: BP 104/51
--- NOTE | 2018-02-17 19:35 | NUR ---
Pt resting in bed. AAO x3. No acute distress noted. No c/o pain or discomfort. Safety measures maintained. Call light and personal belongings within reach. Will continue to monitor.
[2018-02-17 19:36] LABS: BASOPHILS % (AUTO) 0.9 % (0.0-2.0); EOSINOPHILS % (AUTO) 0.9 % (0.0-7.0); HEMATOCRIT 25.8 % (31.2-41.9); HEMOGLOBIN 8.8 g/dL (10.9-14.3); LYMPHOCYTES # (AUTO) 1.1 K/uL (20.0-40.0); MEAN CORPUSCULAR HGB CONC 34 g/dL (32.3-35.6); MONOCYTES # (AUTO) 0.4 K/uL (2.0-10.0); MONOCYTES % (AUTO) 9.5 % (0.0-11.0); NEUTROPHILS # (AUTO) 2.5 K/uL (1.8-8.9); NEUTROPHILS % (AUTO) 60.7 % (38.5-71.5); PLATELET COUNT (AUTO) 122 K/uL (179-408); WHITE BLOOD COUNT (AUTO) 4.1 K/uL (3.8-11.8)
[2018-02-17 19:38] LABS: RED BLOOD CELL COUNT(AUTO) 2.37 MIL/uL (3.63-4.92)
[2018-02-17 19:40] LABS: ALANINE AMINOTRANSFERASE 16 U/L (14-59); ALKALINE PHOSPHATASE 72 U/L (50-136); ASPARTATE AMINOTRANSFERASE 17 U/L (15-37); BILIRUBIN,TOTAL 0.7 mg/dL (0.2-1.0); CARBON DIOXIDE 25 mmol/L (21-32); CHLORIDE 96 mmol/L (98-107); CREATININE 1.2 mg/dL (0.6-1.3); GLUCOSE 118 mg/dL (74-106); POTASSIUM 3.3 mmol/L (3.5-5.1); TOTAL PROTEIN, SERUM 6.1 g/dL (6.4-8.2); UREA NITROGEN, BLOOD 16 mg/dL (7-18)
[2018-02-18] MEDS: PANTOPRAZOLE SODIUM 40 MG TABLET.DR PO SCH ×3 (06:35→17:36)
[2018-02-18] MEDS: LEVOTHYROXINE SODIUM 125 MCG TABLET PO SCH (06:35)
[2018-02-18 07:59] VITALS: BP 101/44
--- NOTE | 2018-02-18 08:07 | NUR ---
Patient noted sitting up in bed, easily arouses, no complaints of pain, no signs of distress noted, call light in reach, bed locked and in lowest position, x2 bed rails, bed alarm in place, all needs met at this time
--- NOTE | 2018-02-18 08:09 | NUR ---
Patient noted resting in bed with eyes closed, easily arouses, no complaints of pain, no signs of distress noted, call light in reach, bed locked and in lowest position, x2 bed rails, all needs met at this time
[2018-02-18] MEDS: FUROSEMIDE 40 MG TABLET PO SCH (08:27)
[2018-02-18] MEDS: THIAMINE HCL 100 MG TABLET PO SCH (08:28)
[2018-02-18] MEDS: FOLIC ACID 1 MG TABLET PO SCH (08:28)
[2018-02-18] MEDS ORDERED: POTASSIUM CHLORIDE 20 MEQ TAB.PRT.SR PO ONE (17:00)
--- NOTE | 2018-02-18 18:24 | NUR ---
40 mEq of potassium given for potassium level of 3.3
[2018-02-18 21:09] VITALS: BP 110/49
--- NOTE | 2018-02-18 22:37 | NUR ---
resting in bead at the beginning of the shift. needs attended. kept comfortable. tolerated po meds well. denies any pain nor any discomfort. will monitor patient. fall precautions maintained. siderails up for safety. voiding without any difficulty.
[2018-02-19] MEDS: LEVOTHYROXINE SODIUM 125 MCG TABLET PO SCH (06:16)
[2018-02-19] MEDS: PANTOPRAZOLE SODIUM 40 MG TABLET.DR PO SCH ×3 (06:33→16:23)
--- NOTE | 2018-02-19 06:41 | NUR ---
quiet night. slept at long intervals. no acute distress noted. will monitor patient. needs attended. kept comfortable. voiding without any difficulty. no complaints presented during shift.
[2018-02-19 08:20] VITALS: BP 115/54
[2018-02-19] MEDS: BOOST PLUS 237 ML LIQUID (RICH CHOCOLATE) PO SCH ×2 (08:24→16:23)
[2018-02-19] MEDS: THIAMINE HCL 100 MG TABLET PO SCH (08:25)
[2018-02-19] MEDS: FOLIC ACID 1 MG TABLET PO SCH (08:25)
[2018-02-19] MEDS: POTASSIUM CHLORIDE 10 MEQ TAB.PRT.SR PO SCH (08:25)
[2018-02-19] MEDS: FUROSEMIDE 40 MG TABLET PO SCH (08:25)
--- NOTE | 2018-02-19 16:20 | NUR ---
Nutrition consult received for "food dry, patient have hard time swallowing" RD spoke with diet office staff. outpatient admitting clerk spoke with patient regarding menu options and dry food. Patient's diet order was changed to ground/moist foods this afternoon. RD added extra gravy/sauces to meals. Will conduct full nutrition assessment per nutrition policy Addendum: 02/19/18 at [address] Amended: Links added.
--- NOTE | 2018-02-19 18:50 | NUR ---
PT WAS MOVED FROM ROOM 102 TO ROOM 120 BED B. NO CHANGES NOTES, NO BM TODAY, VSS CALL LIGHT IN REACH
--- NOTE | 2018-02-19 20:02 | NUR ---
resting in bed. aaox3 forgetful at times. needs attended. kept comfortable. will monitor patient. no acute distress noted. vital signs taken and recorded.
[2018-02-19 21:06] VITALS: BP 116/58
--- NOTE | 2018-02-20 05:03 | NUR ---
slept well. aaox 3 but forgetful at times. needs attended. kept comfortable. will monitor patient fall precautions maintained. siderails up for safety.
[2018-02-20] MEDS: LEVOTHYROXINE SODIUM 125 MCG TABLET PO SCH (06:23)
[2018-02-20] MEDS: PANTOPRAZOLE SODIUM 40 MG TABLET.DR PO SCH ×3 (06:30→16:49)
[2018-02-20] MEDS: THIAMINE HCL 100 MG TABLET PO SCH (08:01)
[2018-02-20] MEDS: FUROSEMIDE 40 MG TABLET PO SCH (08:01)
[2018-02-20] MEDS: FOLIC ACID 1 MG TABLET PO SCH (08:01)
[2018-02-20] MEDS: POTASSIUM CHLORIDE 10 MEQ TAB.PRT.SR PO SCH (08:01)
[2018-02-20] MEDS: BOOST PLUS 237 ML LIQUID (RICH CHOCOLATE) PO SCH ×2 (08:02→16:53)
[2018-02-20 08:19] VITALS: BP 110/49
--- NOTE | 2018-02-20 10:09 | NUR ---
SBAR report received, board updated. Pt assessed, denies any pain or distress. Bed in locked and lowest position. Pt compliant with all routine medication administration. Plan of care for today discussed. VS WNL. Call light placed within reach. All comfort and safety measures met. Will continue to monitor.
--- NOTE | 2018-02-20 18:23 | NUR ---
Pt x1 assist to bathroom, for voiding and BM x1. Pt safely returned back to bed. Pt is clean, dry, and repositioned for comfort. Skin integrity pictures updated and placed in chart, bruises resolving. No acute distress noted this shift. All needs attended to. remains visiting at the bedside. Bed in locked and lowest position. Call light and personal belongings placed within reach. Will continue to monitor and endorse to on coming night shift supervisor nurse.
--- NOTE | 2018-02-20 19:45 | NUR ---
Received pt in bed, AAO x 3 speaking with her on the phone. No acute distress noted. Denies pain or discomfort at this time. All safety measures and fall precautions maintained. Call light and all personal belongings within reach. Will continue to monitor.
[2018-02-20 20:51] VITALS: BP 120/61
[2018-02-21] MEDS: LEVOTHYROXINE SODIUM 125 MCG TABLET PO SCH (06:36)
[2018-02-21] MEDS: PANTOPRAZOLE SODIUM 40 MG TABLET.DR PO SCH ×3 (06:36→15:44)
--- NOTE | 2018-02-21 07:00 | NUR ---
RECEIVED REPORT FROM PIPE FITTER HELPER, PATIENT AWAKE IN BED, A AND O X 3, NO ACUTE DISTRESS NOTED. RESPIRATIONS EVEN AND UNLABORED. NO COMPLAINTS OF PAIN/DISCOMFORT AT THIS TIME. COMFORT MEASURES PROVIDED. CALL LIGHT WITHIN REACH. WILL CONTINUE TO MONITOR CLOSELY.
[2018-02-21 08:00] VITALS: BP 146/79
[2018-02-21] MEDS: FUROSEMIDE 40 MG TABLET PO SCH (08:18)
[2018-02-21] MEDS: THIAMINE HCL 100 MG TABLET PO SCH (08:19)
[2018-02-21] MEDS: FOLIC ACID 1 MG TABLET PO SCH (08:19)
[2018-02-21] MEDS: POTASSIUM CHLORIDE 10 MEQ TAB.PRT.SR PO SCH (08:19)
[2018-02-21] MEDS: BOOST PLUS 237 ML LIQUID (RICH CHOCOLATE) PO SCH ×2 (08:19→16:28)
[2018-02-21 19:30] VITALS: BP 126/45
--- NOTE | 2018-02-21 20:02 | NUR ---
Received patient in bed. Alert and verbally responsive. Able to make needs known. Denies any pain and discomfort. No acute distress. No SOB. Kept clean and dry. All needs attended to promptly. Call light within reach. Will continue to monitor.
[2018-02-22] MEDS: PANTOPRAZOLE SODIUM 40 MG TABLET.DR PO SCH ×3 (06:45→17:24)
[2018-02-22] MEDS: LEVOTHYROXINE SODIUM 125 MCG TABLET PO SCH (06:45)
--- NOTE | 2018-02-22 07:00 | NUR ---
Patient slept comfortably throughout the night. No c/o pain and discomfort. No acute distress. No SOB. Kept clean and dry. All needs attended to promptly. Call light within reach. Will continue to monitor
[2018-02-22 08:00] VITALS: BP 100/41
[2018-02-22] MEDS: THIAMINE HCL 100 MG TABLET PO SCH (08:38)
[2018-02-22] MEDS: FOLIC ACID 1 MG TABLET PO SCH (08:38)
[2018-02-22] MEDS: FUROSEMIDE 40 MG TABLET PO SCH (08:38)
[2018-02-22] MEDS: POTASSIUM CHLORIDE 10 MEQ TAB.PRT.SR PO SCH (08:38)
[2018-02-22] MEDS: BOOST PLUS 237 ML LIQUID (RICH CHOCOLATE) PO SCH ×2 (08:41→17:33)
--- NOTE | 2018-02-22 13:40 | NUR ---
INTERDISCIPLINARY TEAM CONFERENCE
--- NOTE | 2018-02-22 14:53 | NUR ---
I agree Addendum: 02/22/18 at 1454 by NIC MCCRAY OT Amended: Links added.
--- NOTE | 2018-02-22 18:07 | NUR ---
Patient is alert and oriented x3. no complaint of pain/discomfort. not in distress. stable condition. Call vance within reach. All needs attended. will continue monitor
[2018-02-22 19:30] VITALS: BP 123/53
--- NOTE | 2018-02-22 21:30 | NUR ---
resting in bed. aaox3 forgetful at times. no acute distress noted. needs attended. will monitor patient. kept comfortable. fall precautions maintained. siderails up for safety. repositioned for comfort. voiding well. no complaints presented during the shift.
[2018-02-23] MEDS: LEVOTHYROXINE SODIUM 125 MCG TABLET PO SCH (06:28)
[2018-02-23] MEDS: PANTOPRAZOLE SODIUM 40 MG TABLET.DR PO SCH ×3 (06:31→17:28)
--- NOTE | 2018-02-23 07:42 | NUR ---
Patient noted resting in bed, no complaints of pain at this time, no signs of distress noted, call light in reach, bed locked and in lowest position, x2 bed rails, all needs met at this time
[2018-02-23] MEDS: BOOST PLUS 237 ML LIQUID (RICH CHOCOLATE) PO SCH ×2 (08:28→17:28)
[2018-02-23] MEDS: THIAMINE HCL 100 MG TABLET PO SCH (08:28)
[2018-02-23] MEDS: FUROSEMIDE 40 MG TABLET PO SCH (08:28)
[2018-02-23] MEDS: POTASSIUM CHLORIDE 10 MEQ TAB.PRT.SR PO SCH (08:28)
[2018-02-23] MEDS: FOLIC ACID 1 MG TABLET PO SCH (08:28)
[2018-02-23 08:41] VITALS: BP 112/51
--- NOTE | 2018-02-23 19:30 | NUR ---
PT ALERT AND ORIENTED IN BED. NO DISTRESS NOTED. COMPLIANT WITH NURSING CARE. CLEAN AND DRY. SAFETY MAINTAINED. CALL LIGHT WITHIN REACH. BED ALARM ON. WILL CONTINUE TO MONITOR.
[2018-02-23 20:29] VITALS: BP 114/46
[2018-02-24] MEDS: LEVOTHYROXINE SODIUM 125 MCG TABLET PO SCH (06:25)
[2018-02-24] MEDS: PANTOPRAZOLE SODIUM 40 MG TABLET.DR PO SCH ×3 (06:30→17:19)
--- NOTE | 2018-02-24 07:02 | NUR ---
PT RESTING IN BED. NO DISTRESS NOTED. COMPLAINT WITH MEDICATIONS AND NURSING CARE. SAFETY MAINTAINED. CALL LIGHT WITHIN REACH. BED ALARM ON.
[2018-02-24] MEDS: POTASSIUM CHLORIDE 10 MEQ TAB.PRT.SR PO SCH (08:13)
[2018-02-24] MEDS: THIAMINE HCL 100 MG TABLET PO SCH (08:14)
[2018-02-24] MEDS: FUROSEMIDE 40 MG TABLET PO SCH (08:14)
[2018-02-24] MEDS: FOLIC ACID 1 MG TABLET PO SCH (08:14)
[2018-02-24] MEDS: BOOST PLUS 237 ML LIQUID (RICH CHOCOLATE) PO SCH ×2 (08:14→17:19)
[2018-02-24 08:32] VITALS: BP 113/42
--- NOTE | 2018-02-24 09:48 | NUR ---
pt seen on rounding. pt continues to be stable. pt was seen eating breakfast. vitals stable. no new injuries noted. will continue to monitor.
--- NOTE | 2018-02-24 18:50 | NUR ---
pt continues to be stable throuhgout the day.pt had changed rooms. pt continues to have distended abdomen baseline. vitals stable. no new injuries. will endorse to mine shifter nurse.
[2018-02-24 20:06] VITALS: BP 105/46
--- NOTE | 2018-02-24 21:31 | NUR ---
awake @ beginning of shift. no acute distress noted. needs attended. kept comfortable. will monitor patient. incontinent of bowel and bladder. BM noted this shift. fall precautions maintained. siderails up for safety. vital signs stable.
--- NOTE | 2018-02-25 05:51 | NUR ---
quiet night. no acute distress noted. OOB to the BR with walker with stand by assist. voiding well. no BM noted this shift. denies any pain nor any discomfort. will monitor patient.
[2018-02-25] MEDS: LEVOTHYROXINE SODIUM 125 MCG TABLET PO SCH (06:31)
[2018-02-25] MEDS: PANTOPRAZOLE SODIUM 40 MG TABLET.DR PO SCH ×3 (06:31→17:09)
[2018-02-25 08:00] VITALS: BP 98/44
--- NOTE | 2018-02-25 08:00 | NUR ---
Received patient resting in bed. Awake, alert x4. Denies any pain. Not in any form distress. Call light within reach.
[2018-02-25 08:05] LABS: BASOPHILS % (AUTO) 1.5 % (0.0-2.0); EOSINOPHILS # (AUTO) 0.1 K/uL (0.0-0.7); EOSINOPHILS % (AUTO) 1.6 % (0.0-7.0); HEMATOCRIT 22.5 % (31.2-41.9); HEMOGLOBIN 7.9 g/dL (10.9-14.3); LYMPHOCYTES # (AUTO) 0.8 K/uL (20.0-40.0); LYMPHOCYTES % (AUTO) 26.5 % (20.5-51.5); MEAN CORPUSCULAR HEMOGLOBIN 36.5 uug (24.7-32.8); MEAN CORPUSCULAR HGB CONC 35 g/dL (32.3-35.6); MEAN CORPUSCULAR VOLUME 104.5 fL (75.5-95.3); MONOCYTES # (AUTO) 0.3 K/uL (2.0-10.0); MONOCYTES % (AUTO) 8.7 % (0.0-11.0); NEUTROPHILS % (AUTO) 61.7 % (38.5-71.5); PLATELET COUNT (AUTO) 124 K/uL (179-408); WHITE BLOOD COUNT (AUTO) 3.2 K/uL (3.8-11.8)
[2018-02-25 08:11] LABS: RED BLOOD CELL COUNT(AUTO) 2.16 MIL/uL (3.63-4.92)
[2018-02-25 08:12] LABS: ALANINE AMINOTRANSFERASE 18 U/L (14-59); ALKALINE PHOSPHATASE 75 U/L (50-136); ASPARTATE AMINOTRANSFERASE 30 U/L (15-37); BILIRUBIN,TOTAL 0.7 mg/dL (0.2-1.0); CARBON DIOXIDE 27 mmol/L (21-32); CHLORIDE 98 mmol/L (98-107); CREATININE 0.9 mg/dL (0.6-1.3); GLUCOSE 96 mg/dL (74-106); MAGNESIUM 1.9 mg/dL (1.8-2.4); PHOSPHOROUS 3.3 mg/dL (2.5-4.9); POTASSIUM 3.6 mmol/L (3.5-5.1); TOTAL PROTEIN, SERUM 5.6 g/dL (6.4-8.2); UREA NITROGEN, BLOOD 15 mg/dL (7-18)
[2018-02-25] MEDS: FUROSEMIDE 40 MG TABLET PO SCH (08:26)
[2018-02-25] MEDS: THIAMINE HCL 100 MG TABLET PO SCH (08:26)
[2018-02-25] MEDS: POTASSIUM CHLORIDE 10 MEQ TAB.PRT.SR PO SCH (08:26)
[2018-02-25] MEDS: BOOST PLUS 237 ML LIQUID (RICH CHOCOLATE) PO SCH ×2 (08:26→17:09)
[2018-02-25] MEDS: FOLIC ACID 1 MG TABLET PO SCH (08:27)
[2018-02-25 19:30] VITALS: BP 110/52
--- NOTE | 2018-02-25 19:30 | NUR ---
PT IN ROOM ALERT AWAKE IN NO ACUTE DISTRESS. ABLE TO MAKE NEEDS KNOWN. DENIES ANY PAIN, DISCOMFORT, OR SOB. ABDOMEN STILL DISTENDED BUT ABLE TO HAVE BM EARLIER TODAY. PT MADE AWARE OF PLAN OF CARE. NO ROUTINE HS MEDICATIONS NOTED. CALL LIGHT WITHIN REACH. /S ARE WNL. WILL CONTINUE TO MONITOR.
[2018-02-26] MEDS: LEVOTHYROXINE SODIUM 125 MCG TABLET PO SCH (06:00)
--- NOTE | 2018-02-26 06:00 | NUR ---
PT ABLE TO SLEEP OVERNIGHT WITHOUT DIFFICULTY. NO PAIN OR DISCOMFORT NOTED. ABLE TO MAKE NEEDS KNOWN AND USE WALKER FOR AMBULATION TO RESTROOM WITH ASSISTANCE. ABLE TO DRINK MEDICATION WITHOUT DIFFICULTY. CALL LIGHT WITHIN REACH. AM LABS DRAWN.
[2018-02-26] MEDS: PANTOPRAZOLE SODIUM 40 MG TABLET.DR PO SCH ×3 (06:51→16:27)
[2018-02-26 08:00] VITALS: BP 108/55
[2018-02-26] MEDS: BOOST PLUS 237 ML LIQUID (RICH CHOCOLATE) PO SCH ×2 (08:42→16:33)
[2018-02-26] MEDS: FOLIC ACID 1 MG TABLET PO SCH (08:43)
[2018-02-26] MEDS: THIAMINE HCL 100 MG TABLET PO SCH (08:43)
[2018-02-26] MEDS: POTASSIUM CHLORIDE 10 MEQ TAB.PRT.SR PO SCH (08:43)
[2018-02-26] MEDS: FUROSEMIDE 40 MG TABLET PO SCH (08:43)
[2018-02-26 08:49] LABS: BASOPHILS % (AUTO) 0.6 % (0.0-2.0); EOSINOPHILS # (AUTO) 0.1 K/uL (0.0-0.7); EOSINOPHILS % (AUTO) 1.3 % (0.0-7.0); HEMATOCRIT 26.5 % (31.2-41.9); HEMOGLOBIN 9.1 g/dL (10.9-14.3); LYMPHOCYTES # (AUTO) 1.3 K/uL (20.0-40.0); LYMPHOCYTES % (AUTO) 30.9 % (20.5-51.5); MEAN CORPUSCULAR HEMOGLOBIN 35.7 uug (24.7-32.8); MEAN CORPUSCULAR HGB CONC 35 g/dL (32.3-35.6); MEAN CORPUSCULAR VOLUME 103.4 fL (75.5-95.3); MONOCYTES # (AUTO) 0.3 K/uL (2.0-10.0); NEUTROPHILS # (AUTO) 2.6 K/uL (1.8-8.9); NEUTROPHILS % (AUTO) 60.2 % (38.5-71.5); PLATELET COUNT (AUTO) 169 K/uL (179-408); RED BLOOD CELL COUNT(AUTO) 2.56 MIL/uL (3.63-4.92); WHITE BLOOD COUNT (AUTO) 4.3 K/uL (3.8-11.8)
--- NOTE | 2018-02-26 09:54 | NUR ---
I agree Addendum: 02/26/18 at 0955 by BASIL SINGH OT Amended: Links added.
--- NOTE | 2018-02-26 09:56 | NUR ---
I agree Addendum: 02/26/18 at 0956 by BASIL SINGH OT Amended: Links added.
[2018-02-26] MEDS ORDERED: LACTULOSE 20 G/30 ML LIQUID UDC PO PRN (16:45)
--- NOTE | 2018-02-26 18:32 | NUR ---
Patient is alert and oriented x3.soft slight distended abdomen noted and lab works relayed. no new order as per WASTE RECYCLER. not in distress. no complaint of pain/discomfort. Continue PT/OT for unsteady gait. Call vance within reach. All needs attended. will continue monitor
[2018-02-26 20:59] VITALS: BP 115/66
[2018-02-27] MEDS: PANTOPRAZOLE SODIUM 40 MG TABLET.DR PO SCH ×3 (05:58→17:23)
[2018-02-27] MEDS: LEVOTHYROXINE SODIUM 125 MCG TABLET PO SCH (05:58)
--- NOTE | 2018-02-27 06:00 | NUR ---
pt alert,oriented, slept well overnight,ambulates with walker with standby assist to bathjroom ,no bm just voided.denies any pain,vss,afebrile.no significant changes overnight, call light at reached.
[2018-02-27 07:00] VITALS: BP 110/40
--- NOTE | 2018-02-27 08:00 | NUR ---
PATIENT NOTED RESTING IN BED WATCHING TV, NOTED AT BEDSIDE, DENIES PAIN AT THIS TIME, NO SIGNS OF DISTRESS NOTED, CALL LIGHT IN REACH, BED LOCKED AND IN LOWEST POSITION, BED ALARM IN PLACE, X 2 BED RAILS, ALL NEEDS MET AT THIS TIME
[2018-02-27] MEDS: FUROSEMIDE 40 MG TABLET PO SCH (09:14)
[2018-02-27] MEDS: FOLIC ACID 1 MG TABLET PO SCH (09:14)
[2018-02-27] MEDS: POTASSIUM CHLORIDE 10 MEQ TAB.PRT.SR PO SCH (09:14)
[2018-02-27] MEDS: THIAMINE HCL 100 MG TABLET PO SCH (09:14)
[2018-02-27] MEDS: BOOST PLUS 237 ML LIQUID (RICH CHOCOLATE) PO SCH ×2 (09:15→17:23)
[2018-02-27 21:35] VITALS: BP 113/59
--- NOTE | 2018-02-27 21:49 | NUR ---
resting in bed at the beginning of the shift. needs attended. no acute distress noted. ambulates to the BR with walker with supervision. voiding well. will monitor patient. vital signs stable.
--- NOTE | 2018-02-28 05:23 | NUR ---
quiet night. slept most of the shift. needs attended. voiding well . denies any pain nor any discomfort. will monitor patient.kept comfortable. no BM this shift.
[2018-02-28] MEDS: LEVOTHYROXINE SODIUM 125 MCG TABLET PO SCH (06:19)
[2018-02-28] MEDS: PANTOPRAZOLE SODIUM 40 MG TABLET.DR PO SCH ×3 (06:30→16:39)
[2018-02-28 07:21] LABS: EOSINOPHILS % (AUTO) 1.4 % (0.0-7.0); HEMATOCRIT 23.5 % (31.2-41.9); HEMOGLOBIN 8.1 g/dL (10.9-14.3); LYMPHOCYTES # (AUTO) 0.9 K/uL (20.0-40.0); LYMPHOCYTES % (AUTO) 32.2 % (20.5-51.5); MEAN CORPUSCULAR HEMOGLOBIN 35.7 uug (24.7-32.8); MEAN CORPUSCULAR HGB CONC 35 g/dL (32.3-35.6); MONOCYTES # (AUTO) 0.3 K/uL (2.0-10.0); MONOCYTES % (AUTO) 9.5 % (0.0-11.0); NEUTROPHILS # (AUTO) 1.5 K/uL (1.8-8.9); NEUTROPHILS % (AUTO) 55.9 % (38.5-71.5); PLATELET COUNT (AUTO) 136 K/uL (179-408); WHITE BLOOD COUNT (AUTO) 2.7 K/uL (3.8-11.8)
[2018-02-28 07:22] VITALS: BP 110/45
--- NOTE | 2018-02-28 07:30 | NUR ---
received report from night nurse. patient stable upon initial assessment. patient awake, resting in bed. no s/s acute distress and no complaints of pain. will continue to monitor.
[2018-02-28 07:51] LABS: RED BLOOD CELL COUNT(AUTO) 2.28 MIL/uL (3.63-4.92)
[2018-02-28 07:56] LABS: CARBON DIOXIDE 28 mmol/L (21-32); CHLORIDE 99 mmol/L (98-107); CREATININE 0.9 mg/dL (0.6-1.3); GLUCOSE 96 mg/dL (74-106); MAGNESIUM 1.8 mg/dL (1.8-2.4); PHOSPHOROUS 3.7 mg/dL (2.5-4.9); POTASSIUM 3.8 mmol/L (3.5-5.1); UREA NITROGEN, BLOOD 15 mg/dL (7-18)
[2018-02-28] MEDS: BOOST PLUS 237 ML LIQUID (RICH CHOCOLATE) PO SCH ×2 (08:00→16:39)
[2018-02-28] MEDS: FOLIC ACID 1 MG TABLET PO SCH (09:07)
[2018-02-28] MEDS: THIAMINE HCL 100 MG TABLET PO SCH (09:07)
[2018-02-28] MEDS: POTASSIUM CHLORIDE 10 MEQ TAB.PRT.SR PO SCH (09:07)
[2018-02-28] MEDS: FUROSEMIDE 40 MG TABLET PO SCH (09:07)
--- NOTE | 2018-02-28 14:14 | NUR ---
Agriculture Research Director: Biopsychosocial Assessment SW met with patient at bedside to assess for needs and provide support. Patient is an 82-year-old woman who stated she is in ARU for weakness, anemia, and a compromised liver. Patient stated that she was having trouble standing up, so her called the ambulance. After patient became medically stable, she was transferred to ARU due to functional decline, weakness and deconditioning. Mental Status: Patient appeared alert and oriented x4 during interview. She presented in a euphoric mood with congruent affect. Patient has been in ARU since February 15, 2018. Per patient chart, she has a history of anxiety and alcohol abuse. Patient reported that she uses alcohol to help her sleep. Patient is pleasant, calm, and cooperative. She appears to be coping well with PT and OT. Social: Patient is and lives at home with her 85-year-old . Patient stated she has a few very good friends her age, but they can't get around easily. Patient stated she had a caregiver, but didn't feel confident she would be strong enough to lift her. She is planning to change caregivers. They also have a toolman who is a "claims collector" and helps with projects around the house. Patient's arrived to visit during interview. Patient and her stated they were open to options for caregiving at home, such as help with cleaning and grocery shopping. They feel they have everything under control currently, but understand circumstances may change. Goals: Patient stated she would like to return home. Interventions: SW engaged in active listening. SW provided emotional support and counseling. SW provided patient with caregiving referrals. SW will provide patient with substance abuse referrals for alcohol use.
--- NOTE | 2018-02-28 19:22 | NUR ---
patient stable entire shift. no complaints of pain. all information endorsed to mini shifter
[2018-02-28 20:26] VITALS: BP 116/62
--- NOTE | 2018-02-28 21:04 | NUR ---
awake alert and oriented x3. needs attended. ambulates to the BR with walker with supervision. voiding freely. kept comfortable. no acute distress noted. will monitor patient.no complaints presented during shift.
--- NOTE | 2018-03-01 05:10 | NUR ---
slept well. no distress noted. denies any pain nor any discomfort. will monitor patient. voiding without difficulty. assisted to the BR. attended to needs.
[2018-03-01] MEDS: PANTOPRAZOLE SODIUM 40 MG TABLET.DR PO SCH ×3 (06:33→16:58)
[2018-03-01] MEDS: LEVOTHYROXINE SODIUM 125 MCG TABLET PO SCH (06:33)
[2018-03-01 08:00] VITALS: BP 97/47
--- NOTE | 2018-03-01 08:00 | NUR ---
patient noted resting in bed, no complaints of pain at this time, no signs of distress noted, call light in reach, bed locked and in lowest position, x 2 bed rails, at bedside at this time, all needs met at this time
[2018-03-01] MEDS: THIAMINE HCL 100 MG TABLET PO SCH (08:35)
[2018-03-01] MEDS: POTASSIUM CHLORIDE 10 MEQ TAB.PRT.SR PO SCH (08:35)
[2018-03-01] MEDS: FOLIC ACID 1 MG TABLET PO SCH (08:35)
[2018-03-01] MEDS: FUROSEMIDE 40 MG TABLET PO SCH (08:35)
[2018-03-01] MEDS: BOOST PLUS 237 ML LIQUID (RICH CHOCOLATE) PO SCH ×2 (08:35→16:58)
[2018-03-01 15:39] VITALS: BP 122/58
[2018-03-01 15:46] LABS: BASOPHILS % (AUTO) 0.6 % (0.0-2.0); EOSINOPHILS % (AUTO) 0.9 % (0.0-7.0); HEMATOCRIT 28.4 % (31.2-41.9); HEMOGLOBIN 9.6 g/dL (10.9-14.3); LYMPHOCYTES % (AUTO) 18.8 % (20.5-51.5); MEAN CORPUSCULAR HEMOGLOBIN 34.8 uug (24.7-32.8); MEAN CORPUSCULAR HGB CONC 34 g/dL (32.3-35.6); MEAN CORPUSCULAR VOLUME 103.2 fL (75.5-95.3); MONOCYTES # (AUTO) 0.4 K/uL (2.0-10.0); MONOCYTES % (AUTO) 7.2 % (0.0-11.0); NEUTROPHILS # (AUTO) 3.7 K/uL (1.8-8.9); NEUTROPHILS % (AUTO) 72.5 % (38.5-71.5); PLATELET COUNT (AUTO) 197 K/uL (179-408); RED BLOOD CELL COUNT(AUTO) 2.75 MIL/uL (3.63-4.92); WHITE BLOOD COUNT (AUTO) 5.2 K/uL (3.8-11.8)
[2018-03-01 20:34] VITALS: BP 122/61
[2018-03-02 05:30] VITALS: BP 118/68
[2018-03-02] MEDS: LEVOTHYROXINE SODIUM 125 MCG TABLET PO SCH (06:12)
[2018-03-02] MEDS: PANTOPRAZOLE SODIUM 40 MG TABLET.DR PO SCH ×3 (06:33→16:21)
--- NOTE | 2018-03-02 06:35 | NUR ---
Patient slept comfortably throughout the night. No c/o pain and discomfort. No acute distress. No SOB. Assisted to the bathroom. Pericare provided. Kept clean and dry. All needs attended to promptly. Call light within reach. Will continue to monitor.
--- NOTE | 2018-03-02 08:00 | NUR ---
Patient says she wants to hear her results of labwork again. Patient is in no apparent distress. Spouse of patient arrival to unit to visit patient. Patient assessment within normal limits of baseline. Possible discharge tomorrow.
[2018-03-02 08:29] VITALS: BP 100/54
[2018-03-02] MEDS: BOOST PLUS 237 ML LIQUID (RICH CHOCOLATE) PO SCH ×2 (08:29→16:22)
[2018-03-02] MEDS: FOLIC ACID 1 MG TABLET PO SCH (09:07)
[2018-03-02] MEDS: POTASSIUM CHLORIDE 10 MEQ TAB.PRT.SR PO SCH (09:07)
[2018-03-02] MEDS: THIAMINE HCL 100 MG TABLET PO SCH (09:07)
[2018-03-02] MEDS: FUROSEMIDE 40 MG TABLET PO SCH (09:07)
[2018-03-02 16:00] VITALS: BP 115/53
--- NOTE | 2018-03-02 19:30 | NUR ---
Patient lying comfortably at start of shift with no acute distress noted. Vital signs within range at start of shift. Pertinent assessment completed. patient denies pain & SOB. Room checked for safety at start of shift. Bed in low position & locked. Call light within reach of patient. Will continue to monitor through shift.
[2018-03-02 19:49] VITALS: BP 127/64
[2018-03-03 05:31] VITALS: BP 120/74
--- NOTE | 2018-03-03 06:26 | NUR ---
Patient slept well through the shift. No complaints of pain or SOB. All needs attended to promptly. Medications administered as per MD order. Safety measures implemented. Call light within reach of patient. Will endorse to day shift nurse.
[2018-03-03] MEDS: PANTOPRAZOLE SODIUM 40 MG TABLET.DR PO SCH ×2 (06:31→11:30)
[2018-03-03] MEDS: LEVOTHYROXINE SODIUM 125 MCG TABLET PO SCH (06:31)
[2018-03-03] MEDS: BOOST PLUS 237 ML LIQUID (RICH CHOCOLATE) PO SCH (07:56)
[2018-03-03 07:57] LABS: CARBON DIOXIDE 26 mmol/L (21-32); CHLORIDE 103 mmol/L (98-107); GLUCOSE 119 mg/dL (74-106); MAGNESIUM 1.8 mg/dL (1.8-2.4); PHOSPHOROUS 3.5 mg/dL (2.5-4.9); POTASSIUM 3.5 mmol/L (3.5-5.1); UREA NITROGEN, BLOOD 15 mg/dL (7-18)
--- NOTE | 2018-03-03 07:57 | NUR ---
Assist with patient positioning items for breakfast.
[2018-03-03 08:22] VITALS: BP 114/54
[2018-03-03 08:30] LABS: BASOPHILS # (AUTO) 0.1 K/uL (0.0-8.0); BASOPHILS % (AUTO) 2.2 % (0.0-2.0); EOSINOPHILS % (AUTO) 1.5 % (0.0-7.0); LYMPHOCYTES # (AUTO) 0.7 K/uL (20.0-40.0); MEAN CORPUSCULAR HEMOGLOBIN 34.6 uug (24.7-32.8); MEAN CORPUSCULAR HGB CONC 34 g/dL (32.3-35.6); MEAN CORPUSCULAR VOLUME 103.2 fL (75.5-95.3); MONOCYTES # (AUTO) 0.3 K/uL (2.0-10.0); MONOCYTES % (AUTO) 10.7 % (0.0-11.0); NEUTROPHILS # (AUTO) 1.4 K/uL (1.8-8.9); NEUTROPHILS % (AUTO) 56.6 % (38.5-71.5)
[2018-03-03 08:40] LABS: HEMOGLOBIN 8.1 g/dL (10.9-14.3); RED BLOOD CELL COUNT(AUTO) 2.33 MIL/uL (3.63-4.92); WHITE BLOOD COUNT (AUTO) 2.4 K/uL (3.8-11.8)
[2018-03-03 08:41] LABS: PLATELET COUNT (AUTO) 141 K/uL (179-408)
[2018-03-03] MEDS: THIAMINE HCL 100 MG TABLET PO SCH (08:41)
[2018-03-03] MEDS: FOLIC ACID 1 MG TABLET PO SCH (08:41)
[2018-03-03] MEDS: FUROSEMIDE 40 MG TABLET PO SCH (08:41)
[2018-03-03] MEDS: POTASSIUM CHLORIDE 10 MEQ TAB.PRT.SR PO SCH (08:41)
[2018-03-03 11:44] LABS: BASOPHILS % (MANUAL) 1 % (0-2); EOSINOPHILS % (MANUAL) 4 % (0-8); LYMPHOCYTES % (MANUAL) 34 % (20-40); MONOCYTES % (MANUAL) 6 % (2-10); NEUTROPHILS % (MANUAL) 55 % (42-75)
--- NOTE | 2018-03-03 16:13 | NUR ---
Patient discharge to her residence at [facility] with spouse accompanying her. Ambulance transportation provided. Patient given a follow up with her physician and appointment scheduled as directed by provider. Identification band removed. Patient did not have estevez or IV. Pictures of arms taken and left in paper chart.
== END 2018-03-03 15:35 | disposition home health service (06) | DRG 432 ==
LOC: UNDOADMIN 11:25
PROVIDERS: ADMIT Physical Medicine & Rehabilitation Pain Medicine; ATTEND Physical Medicine & Rehabilitation Pain Medicine
DX: K70.31 Alcoholic cirrhosis of liver with ascites (principal); E43 Unspecified severe protein-calorie malnutrition; D61.818 Other pancytopenia; I95.9 Hypotension, unspecified; K76.6 Portal hypertension; R18.8 Other ascites; D53.9 Nutritional anemia, unspecified; E83.42 Hypomagnesemia; I35.0 Nonrheumatic aortic (valve) stenosis; K25.9 Gastric ulcer, unspecified as acute or chronic, without hemorrhage or perforation; D50.9 Iron deficiency anemia, unspecified; E03.9 Hypothyroidism, unspecified; F41.9 Anxiety disorder, unspecified; K74.60 Unspecified cirrhosis of liver; I10 Essential (primary) hypertension; K21.9 Gastro-esophageal reflux disease without esophagitis; R53.1 Weakness; M19.90 Unspecified osteoarthritis, unspecified site; E78.5 Hyperlipidemia, unspecified; H40.9 Unspecified glaucoma; K29.60 Other gastritis without bleeding; K31.89 Other diseases of stomach and duodenum; M81.0 Age-related osteoporosis without current pathological fracture; Z91.81 History of falling; F10.20 Alcohol dependence, uncomplicated; Y90.9 Presence of alcohol in blood, level not specified; Z88.0 Allergy status to penicillin; R53.81 Other malaise
CPT/HCPCS: 36415; 70030-TC; 76700; 83735; 84100; 84443; 85025; 92523; 92526; 92610; 93307; 97110; 97112; 97116; 97165; 97530; 97535; A4663